=== PATIENT | female | born 1965 | race Caucasian/White ===

== ENCOUNTER 2017-11-09 15:21 | Emergency (ER) | payer OTHER ==
[~2017-11-09] VITALS: Ht 152.4 cm; Wt 65.8 kg
--- OUTSIDE RECORDS SUMMARY | 2017-11-09 15:24 | XMS REPORT ---
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 SERTRALINE HCL 98376938271 Active Dylan Campbell MD Active SEROQUEL 300 MG ORAL TABLET Take 1 tablet by mouth at bedtime. QUETIAPINE FUMARATE 48975628261 Active Dylan Campbell MD Active TRAZODONE HCL 100 MG ORAL TABLET Take 1/2-1 tablet at bedtime as needed for sleep. TRAZODONE HCL 31072372034 Active Dylan Campbell MD Active LEVOTHYROXINE SODIUM 50 MCG ORAL TABLET TK 1 T PO QD LEVOTHYROXINE SODIUM 28678386539 Active Dylan Campbell MD Active KEPPRA 1000 MG ORAL TABLET TAKE 2 TABLETS AT NIGHT LEVETIRACETAM 05928819910 Active Dylan Campbell MD Active LEVETIRACETAM 500 MG ORAL TABLET TAKE 3 TABLETS EVERY MORNING AND TAKE 4 TABLETS AT BEDTIME LEVETIRACETAM 86454829867 Active Dylan Campbell MD Active VIMPAT 100 MG ORAL TABLET TAKE 1 TABLET BY MOUTH TWICE A DAY LACOSAMIDE 88644482815 Active Dylan Campbell MD Active LISINOPRIL 5 MG ORAL TABLET LISINOPRIL 99780522745 Active Dylan Campbell MD Active Vital Signs Date Name Value Unit Range Description blood pressure, diastolic 78 mm[Hg] BP agosto blood pressure, systolic 114 mm[Hg] BP sys height E&M 60 [in_us] Bdy height pulse rate E&M 79 /min Heart rate weight E&M 171.20 [lb_av] Weight Measured blood pressure, diastolic 94 mm[Hg] BP agosto blood pressure, systolic 145 mm[Hg] BP sys height E&M 60 [in_us] Bdy height pulse rate E&M 97 /min Heart rate weight E&M 176.60 [lb_av] Weight Measured Encounters Date Encounter Provider Code Facility 09:44:30 [employer]NA[employer] Est Patient Detailed - [id number] Dylan Campbell MD [id number] [facility] Procedures Code Procedure Name Date Entry Date Standard Description [id number] Diagnostic evaluation with medical - [id number] 13:00:09 [employer]NA[employer]
--- OUTSIDE RECORDS SUMMARY | 2017-11-09 15:24 | XMS REPORT | Clinical Summary ---
Author Author [facility] Address Unknown Phone Unavailable Care Team Providers Care Obstetrics Tech Name Role Phone Olivier Maurice MD PCP Allergies No Known Allergies Current Medications Not on file Active Problems Not on file Social History Tobacco Use Types Packs/Day Years Used Date Never Assessed Alcohol Use Drinks/Week oz/Week Comments No Sex Assigned at Date Recorded Not on file Last Filed Vital Signs Not on file Plan of Treatment Not on file Results Not on fileafter 11/08/2016 Insurance Payer Benefit Subscriber ID Type Phone Address Plan / Group [employer] [place] xxxxxxxxx O COMM [employer]+ CHRIS
[2017-11-09] MEDS ORDERED: ONDANSETRON HCL 4 MG ORAL DISINTEGRATING TAB PO ONE (16:45)
[2017-11-09 16:54] LABS: BILIRUBIN,URINE NEGATIVE (NEGATIVE); CLARITY,URINE CLEAR (CLEAR); COLOR,URINE YELLOW (YELLOW); KETONES,URINE NEGATIVE (NEGATIVE); LEUKOCYTE ESTERASE ,URINE NEGATIVE (NEGATIVE); NITRITE,URINE NEGATIVE (NEGATIVE); PROTEIN,URINE DIPSTICK NEGATIVE (NEGATIVE); URINE UROBILINOGEN 0.2 mg/dL (0.2 - 1)
[2017-11-09 17:04] LABS: EPITHELIAL CELLS,URINE FEW /LPF; RENAL EPITHELIAL CELLS,URINE FEW
[2017-11-09 19:01] LABS: BASOPHILS # (AUTO) 0.1 (0.0-0.1); BASOPHILS % 1.8 % (0.0-1.0); EOSINOPHILS # (AUTO) 0.1 (0.0-0.4); HEMATOCRIT 41.5 % (34.2-44.1); HEMOGLOBIN 14.4 g/dL (12.0-16.0); LYMPHOCYTES % 39.6 % (18.0-39.1); MEAN CORPUSCULAR HEMOGLOBIN 28.7 pg (28-32); MEAN CORPUSCULAR HGB CONC 34.7 g/dL (31-35); MEAN CORPUSCULAR VOLUME 82.8 fL (81-99); MONOCYTES # (AUTO) 0.4 (0.2-0.8); MONOCYTES % 7.6 % (4.4-11.3); NEUTROPHILS # (AUTO) 2.5 (2.1-6.9); NEUTROPHILS % 49.8 % (38.7-80.0); PLATELET COUNT 252 x10e3/uL (140-360); RED BLOOD COUNT 5.01 x10e6/uL (3.6-5.1); RED CELL DISTRIBUTION WIDTH 12.6 % (11.7-14.4)
[2017-11-09 19:09] LABS: INR 1.03; PARTIAL THROMBOPLASTIN TIME 28.9 seconds (23.8-35.5); PROTHROMBIN TIME 12.7 seconds (11.9-14.5)
[2017-11-09 19:18] LABS: ALANINE AMINOTRANSFERASE 12 IU/L (0-55); ALBUMIN 4.1 g/dL (3.5-5.0); ALBUMIN/GLOBULIN RATIO 1.3 (0.8-2.0); ALKALINE PHOSPHATASE 81 IU/L (40-150); AMYLASE 32 U/L (25-125); ANION GAP 11.1 mmol/L (8-16); BLOOD UREA NITROGEN 7 mg/dL (7-26); BUN/CREATININE RATIO 9 (6-25); CALCIUM 9.4 mg/dL (8.4-10.2); CARBON DIOXIDE 25 mmol/L (22-29); CHLORIDE 105 mmol/L (98-107); CREATININE, SERUM 0.77 mg/dL (0.57-1.11); EST GLOMERULAR FILTRATION RATE > 60 ML/MIN (60-); GLUCOSE 83 mg/dL (74-118); LIPASE 19 U/L (8-78); MAGNESIUM 2.1 MG/DL (1.3-2.1); POTASSIUM 4.1 mmol/L (3.5-5.1); SODIUM 137 mmol/L (136-145)
[2017-11-09 21:34] VITALS: BP 164/103
== END 2017-11-09 21:36 | disposition home or self-care (01) ==
LOC: ER 15:21
DX: R10.11 Right upper quadrant pain (principal); R11.2 Nausea with vomiting, unspecified; E03.9 Hypothyroidism, unspecified; F32.9 Major depressive disorder, single episode, unspecified; G40.909 Epilepsy, unspecified, not intractable, without status epilepticus
CPT/HCPCS: 36415; 80053; 81001; 82150; 83690; 83735; 85025; 85610; 85730; 93005; 99283